=== PATIENT | male | born 1970 | race African-American/Black ===

== ENCOUNTER 2024-06-06 15:59 | Emergency (ER) | payer OTHER ==
[2024-06-06 16:22] VITALS: BP 105/62; PULSE 82; RESP 17; TEMP 97.6; BMI 27.7
[2024-06-06 19:54] LABS: BASO % 1.5 % (0-2.0); EOS % 11.2 % (0-4.5); HEMATOCRIT 38.8 % (35.4-49); HEMOGLOBIN 12.5 GM/dL (11.7-16.9); LYMPH % 50.3 % (8-40); MCH 23.7 pg (25.7-33.7); MCHC 32.3 g/dl (32.0-35.9); MEAN CELL VOLUME 73.3 fl (80-96); MEAN PLT VOLUME 7.8 fl (7.5-11.1); MONO % 9.2 % (3.8-10.2); NEUT % 27.8 % (42.8-82.8); PLATELET COUNT 236 10^3/uL (134-434); RBC 5.29 M/mm3 (4.00-5.60); RDW 15.5 % (11.9-15.9); WHITE BLOOD COUNT 6.1 K/mm3 (4.0-10.0)
[2024-06-06 19:59] LABS: BLOOD UREA NITROGEN 13.5 mg/dL (7-18); CALCIUM 9.1 mg/dL (8.5-10.1)
[2024-06-06 20:03] LABS: CREATININE 1.2 mg/dL (0.55-1.3)
[2024-06-06 21:47] LABS: PH,URINE 5.5 (5.0-8.0); URINE APPEARANCE CLEAR; URINE BILIRUBIN NEGATIVE (NEGATIVE); URINE COLOR YELLOW; URINE GLUCOSE (UA) NEGATIVE (NEGATIVE); URINE KETONE NEGATIVE (NEGATIVE); URINE LEUK ESTERASE 1+ (NEGATIVE); URINE NITRITE NEGATIVE (NEGATIVE); URINE PROTEIN NEGATIVE (NEGATIVE); URINE UROBILINOGEN 0.2 mg/dL (0.2-1.0)
[2024-06-06 22:28] LABS: EPI CELLS 2.7 /uL (0-25.1); HYALINE CASTS 0.29 /uL (0-3.1); URINE BACTERIA 5.6 /uL (0-1359); URINE RBC 7.1 /uL (0-23.9); URINE WBC 46.6 /uL (0-25.8)
== END 2024-06-06 23:30 | disposition home or self-care (01) ==
LOC: JER 15:59
DX: R10.31 Right lower quadrant pain (principal)
CPT/HCPCS: 36415; 74176-TC; 80048; 81003; 85025; 87086; 99284-25